=== PATIENT | female | born 1960 | race Caucasian/White ===

== ENCOUNTER 2018-11-28 00:05 | Emergency (ER) | payer BC, SELFPAY ==
[2018-11-28 00:13] VITALS: BP 138/87; PULSE 74; RESP 18; TEMP 36.4; O2SAT 97
--- NOTE | 2018-11-28 00:16 | ED_ITS ---
HPI - Abdominal Pain General Chief Complaint: Abdominal Pain Stated Complaint: possible food stuck in esophagus Time Seen by Provider: 11/28/18 00:16 Source: patient Mode of arrival: Ambulatory Limitations: no limitations History of Present Illness HPI narrative: The patient ended about 5:30 p.m. she had steak with dinner. She admits to swallowing a poorly chewed piece of steak, and feeling like the steak became stuck in her lower central chest. She had gastric bypass in the s. She has had several incidents like this, generally by induced vomiting. She has induce vomiting several times tonight. She had a little food after the stay, vomited that too. She still has the xiphoid area of pressure. She has discomfort wrapping around the chest. She has no associated dyspnea. She has epigastric pain. She has a history of SVT. She is feeling no palpitations. She has never required surgical intervention with esophageal foreign body. Related Data Allergies Allergy/AdvReac Type Severity Reaction Status Date / Time No Known Drug Allergies Allergy Verified 11/28/18 01:36 Review of Systems Review of Systems ROS Unobtainable: All systems reviewed & are unremarkable except as noted in HPI and below Constitutional Constitutional: Denies fever(s) ENT Ears, Nose, Mouth, and Throat: Denies mouth pain, Denies neck pain and Denies sore throat Cardiovascular Cardiovascular: Reports as per HPI, Reports chest pain and Denies dyspnea Respiratory Respiratory: Denies cough, Denies dyspnea and Denies wheezing Gastrointestinal Gastrointestinal: Reports as per HPI, Denies abdominal pain, Denies nausea and Denies vomiting Musculoskeletal Musculoskeletal: Denies neck pain Allergic/Immunologic Allergic/Immunologic: Denies wheezing [facility] Medical History Esophageal foreign body (Acute) SVT (supraventricular tachycardia) (Acute) Surgical History (Updated 11/28/18 @ 00:40 by Sushant Pedraza MD) History of gastric bypass (Acute) Social History Smoking Status: Never smoker Social History Smoking Status: Never smoker Exam Initial Vital Signs Initial Vital Signs: Vital Signs Temperature 97.5 F L 11/28/18 00:13 Pulse Rate 74 11/28/18 00:13 Respiratory Rate 18 11/28/18 00:13 Blood Pressure 138/87 11/28/18 00:13 Pulse Oximetry 97 11/28/18 00:13 Const General: cooperative and well developed Nutritional Appearance: well nourished Orientation: alert, awake and oriented x3 [facility] Head: normal to inspection and atraumatic Mouth: oral mucosae normal, lip normal, tongue normal and oropharynx normal Neck Neck: full ROM, supple and No tender Chest Chest: normal inspection of the chest Resp Effort & Inspection: normal respiratory effort and able to speak in complete sentences Auscultation: clear to auscultation bilaterally, no rales, no rhonchi and no wheezes Cardio Rate: regular rate Rhythm: regular rhythm Heart Sounds: S1 normal, S2 normal, no click, no gallops, no murmurs and no rubs Pulses: normal peripheral pulses GI Inspection: normal to inspection Palpation: soft, No guarding and tender (Mild epigastric discomfort) Back/Spine/Pelvis Back: normal to inspection Skin General: no rashes or lesions noted Neuro General: alert, oriented x3, gait normal and no focal motor deficits Speech: speech normal Course Course Course Narrative: The patient was given glucagon. She took sips of warm coconut and some belching. She took sips of warm water, and vomited a bit. She then became pain free, and is drinking water without discomfort. There is no pain, no nausea or vomiting. I am making the diagnosis of esophageal foreign body, but is understood with her history of gastric bypass the blockage may be at a different level. I referred her to surgery for potential EGD. Orders Ordered: ED Orders 11/28/18 00:25 XR chest 2V Stat EKG-12 Lead Stat 11/28/18 01:20 Complete Blood Count AUTO DIFF Stat Comprehensive Metabolic Panel Stat Prothrombin Time INR Stat Sodium Chloride (Normal Saline 0.9%) 1,000 mls @ 150 mls/hr IV CONT AJAY Discontinued Medications Glucagon (Glucagen) 1 mg IV NOW ONE Stop: 11/28/18 00:26 Last Admin: 11/28/18 00:37 Dose: 1 mg Documented by: GORDO Vital Signs Vital signs: Vital Signs - 8 hr 11/28/18 00:13 11/28/18 01:23 Temperature 97.5 F L Pulse Rate 74 84 Respiratory Rate 18 18 Blood Pressure 138/87 Blood Pressure [Left Arm] 139/80 Pulse Oximetry 97 98 MDM - Abdominal Pain Imaging Data Chest x-ray: My impression: Normal ECG Data Attestation: I personally reviewed and interpreted this ECG as follows: (Normal sinus rhythm rate 67 beats per minute. First degree AV block. LBB. No ectopy. No acute ST T wave changes.) Discharge Plan Departure Patient Disposition: Home Clinical Impression: Esophageal foreign body Qualifiers: Encounter type: initial encounter Qualified Code(s): T18.108A - Unspecified foreign body in esophagus causing other injury, initial encounter Instructions: Steakhouse Syndrome Activity Restrictions/Additional Instructions: Chew food slowly and carefully. Drink a lot of fluids with her meals. Follow-up with the local surgery group, you should undergo EGD to further evaluate this recurring situation. I will give you contact information for the local surgeons. Return the ER as needed. Referrals: Mechelle Rangel MD [Physician] -
--- NOTE | 2018-11-28 00:25 | DI.RAD.S_ITS ---
PROCEDURE: XR CHEST 2V INDICATIONS: Esophageal Foreign body TECHNIQUE: 2 views of the chest were acquired. COMPARISON: None. FINDINGS: Surgical changes and devices: Hernia mesh clips noted in the left upper quadrant and cholecystectomy clips.. Lungs and pleura: Lungs are clear. No pleural effusions or pneumothorax. Mediastinum: Mediastinal contours are normal. Heart size is normal. Bones and chest wall: No suspicious bony abnormalities. Soft tissues appear unremarkable. IMPRESSION: No acute cardiopulmonary disease process. Dictated by: Ronna Fu MD, PhD on 11/28/2018 at 8:00 Approved by: Ronna Fu MD, PhD on 11/28/2018 at 8:00
[2018-11-28] MEDS: GLUCAGON,HUMAN RECOMBINANT 1 MG/ML VIAL IV (00:37)
[2018-11-28 01:23] VITALS: BP 139/80; PULSE 84; RESP 18; O2SAT 98
--- NOTE | 2018-11-28 01:44 | PC.NURSE ---
She was able to swallow now and her abd. pain was gone.She felt much better.DR Pedraza notified.
== END 2018-11-28 02:15 | disposition home or self-care (01) ==
PROVIDERS: Emergency Provider Emergency Medicine
DX: T18.108A Unspecified foreign body in esophagus causing other injury, initial encounter (principal); R00.0 Tachycardia, unspecified
CPT/HCPCS: 36415; 71046; 93005; 96374; 99283; 99285; J1610